=== PATIENT | female | born 1995 | race Caucasian/White ===

== ENCOUNTER 2020-05-16 14:33 | Emergency (ER) | payer OTHER ==
[~2020-05-16] VITALS: Ht 167.6 cm; Wt 65.0 kg
[2020-05-16 14:34] VITALS: BP 112/57
[2020-05-16] MEDS ORDERED: NEOSPORIN OINT 0.9 GM PKT TOP ONE (15:30)
[2020-05-16] MEDS ORDERED: BACI500O21 TOP (15:42)
== END 2020-05-16 15:54 | disposition home or self-care (01) ==
LOC: M ED 14:33
DX: S61.012A Laceration without foreign body of left thumb without damage to nail, initial encounter (principal); X58.XXXA Exposure to other specified factors, initial encounter; Y92.89 Other specified places as the place of occurrence of the external cause; Y93.9 Activity, unspecified; Y99.1 Military activity